=== PATIENT | female | born 1990 | race Caucasian/White ===

== ENCOUNTER 2017-11-19 23:21 | Emergency (ER) | payer OTHER ==
[~2017-11-19] VITALS: Ht 160 cm; Wt 52.2 kg
[2017-11-19 23:28] VITALS: Ht 160 cm; Wt 52.2 kg
[2017-11-20 00:45] LABS: microscopic required? YES; urine erythrocyte 3+ (NEGATIVE)
[2017-11-20 01:20] LABS: BASOPHIL % 0.2 % (0-2); PLATELET COUNT 263 x10^3mcL (130-400)
[2017-11-20 02:39] VITALS: BP 105/61
[2017-11-20 05:08] LABS: CARBON DIOXIDE 24.6 mmol/L (21-32); CHLORIDE SERUM 103 mmol/L (98-107); GLUCOSE SERUM 92 mg/dL (74-106); POTASSIUM SERUM 3.8 mmol/L (3.5-5.1); SODIUM SERUM 140 mmol/L (136-145)
[2017-11-20 05:09] LABS: ALBUMIN 4.2 g/dL (3.4-5.0); AST/SGOT 13 U/L (15-37); BILIRUBIN TOTAL 0.3 mg/dL (0.20-1.00); GFR1 > 60 mL/min
[2017-11-20 05:10] LABS: ALKALINE PHOSPHATASE 85 U/L (46-116); ALT/SGPT 14 U/L (14-59); AMYLASE 40 U/L (25-115); LIPASE 89 IU/L (73-393)
== END 2017-11-20 02:39 | disposition home or self-care (01) ==
LOC: ED 23:21
PROVIDERS: Emergency Medicine
DX: N39.0 Urinary tract infection, site not specified (principal)
CPT/HCPCS: 83880; J1885; J1956; J2270; J2405; J7030